=== PATIENT | female | born 1975 | race Caucasian/White ===

== ENCOUNTER 2017-10-27 23:41 | Inpatient (IN) ==
[2017-10-27] MEDS ORDERED: MOM Conc 10 ML UD.LIQ PO PRN (23:50)
[2017-10-27] MEDS ORDERED: Mag Hydrox/Al Hydrox/Simeth 30 ML UDC PO PRN (23:50)
[2017-10-27] MEDS ORDERED: *HR* LORazepam 1 MG TABLET PO PRN (23:50)
[2017-10-27] MEDS ORDERED: *HR* LORazepam 2 MG/ML VIAL IM PRN (23:50)
[2017-10-27] MEDS ORDERED: traZODone 50 MG TABLET PO PRN (23:50)
[2017-10-27] MEDS ORDERED: Haloperidol Lactate 5 MG/ML VIAL IM PRN (23:50)
[2017-10-27] MEDS ORDERED: hydrOXYzine pamoate 25 MG CAPSULE PO PRN (23:50)
[2017-10-28] MEDS: Ibuprofen 400 MG TABLET PO PRN ×2 (00:38→14:00)
[2017-10-28] MEDS: Nicotine 21 MG PATCH.TD24 TD SCH (09:27)
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
[2017-10-28] MEDS ORDERED: Ondansetron ODT 4 MG TAB.RAPDIS SL PRN (15:37)
[2017-10-28] MEDS: Loratadine 10 MG TABLET PO SCH (18:36)
[2017-10-28] MEDS: Nystatin POWDER 30 GM BOTTLE TP SCH ×2 (18:36→21:09)
[2017-10-28] MEDS ORDERED: cloNIDine HCl 0.1 MG TABLET PO ONE (21:00)
[2017-10-28] MEDS: Pregabalin 50 MG CAPSULE PO SCH (21:09)
[2017-10-28] MEDS: clonazePAM 1 MG TABLET PO SCH (21:09)
[2017-10-29 08:34] LABS: Basophils # 0.1 K/mcL (0.0-0.2); Basophils % 0.8 %; Eosinophils # 0.3 K/mcL (0.0-0.6); Hematocrit 44.3 % (35.3-44.9); Hemoglobin 14.4 g/dL (11.5-15.4); Immature Granulocytes % 0.5 % (0-4); Immature Platelets 5.2 % (1.1-6.1); Lymphocytes # 3.1 K/mcL (0.6-4.6); Lymphocytes % 37.2 %; Mean Corpuscular HGB Conc 32.5 g/dL (31.6-35.5); Mean Corpuscular Hemoglobin 27.4 pg (28.0-33.3); Mean Corpuscular Volume 84.2 fL (83.0-100.0); Mean Platelet Volume 11.1 fL (9.4-12.4); Monocytes # 0.6 K/mcL (0.0-1.3); Monocytes % 6.8 %; Neutrophils # 4.3 K/mcL (1.6-8.9); Platelet Count 195 K/mcL (140-400); Red Blood Count 5.26 M/mcL (3.82-4.97); Segmented Neutrophils % 51.7 %
[2017-10-29 08:53] LABS: Thyroid Stimulating Hormone 0.046 mcIU/mL (0.340-5.600)
[2017-10-29 09:07] LABS: Chol/HDL Ratio 3.5 (0-4.9)
[2017-10-29] MEDS: Pregabalin 50 MG CAPSULE PO SCH ×2 (09:10→20:33)
[2017-10-29] MEDS: Potassium Citrate 10 MEQ TABLET.ER PO SCH (09:10)
[2017-10-29] MEDS: ARIPiprazole 10 MG TABLET PO SCH (09:11)
[2017-10-29] MEDS: Loratadine 10 MG TABLET PO SCH (09:11)
[2017-10-29] MEDS: Cholecalciferol (D-3) 1,000 UNIT TABLET PO SCH (09:11)
[2017-10-29] MEDS: clonazePAM 1 MG TABLET PO SCH ×3 (09:11→20:34)
[2017-10-29] MEDS: Nicotine 21 MG PATCH.TD24 TD SCH (09:11)
[2017-10-29] MEDS: Nystatin POWDER 30 GM BOTTLE TP SCH ×3 (09:12→20:40)
[2017-10-29] MEDS: Ibuprofen 400 MG TABLET PO PRN ×2 (12:04→20:39)
--- NOTE | 2017-10-29 14:52 | Psychiatry Progress Note ---
Date of Encounter: 10/29/17 Time of Encounter: 14:45 Subjective Interval history: The patient is a 42-year-old white female. Chief complaint house my thyroid I am feeling a little bit better. I think my medicine is not home. History of present illness over the past 24 hours the patient has had some sedation she has done poorly with her depression now feels that she did not do well off Abilify and Abilify was sent to her pharmacy but she never received it for a week then suicidal ideation increased. Now the patient is feeling better but she still worries but her thyroid she thinks that she may have thyroid problems she recalls that when she was growing up she was normal weight at age 11 she started to blow up. Meaning that she gained a lot of weight. She had her thyroid checked the TSH was still low but that free T4 was within normal range. I told her not to take the Synthroid and to have it rechecked. Other measures such as blood sugar and lipids and white blood cells were within normal limits the CRP was not elevated suggesting that the cause of the leukocytosis not known but it has resolved. The patient would like to talk about discharge follow-up. She is scheduled at [facility] on November 03 and [facility] on November 04. She may address her housing problems she plans to apply for disability Review of Systems Psychiatric: Reports: depression, suicidal ideation, irritability Results - Vital Signs Vital Signs: Temp Pulse Resp BP 97.0 F L 53 20 139/78 10/29/17 09:00 10/29/17 09:00 10/29/17 09:00 10/29/17 09:00 - Labs Labs: Laboratory Results - last 24 hr 10/29/17 10/29/17 10/29/17 07:34 07:34 07:34 WBC 8.4 RBC 5.26 H Hgb 14.4 Hct 44.3 MCV 84.2 MCH 27.4 L MCHC 32.5 RDW 14.0 Plt Count 195 MPV 11.1 Immature Gran % 0.5 Seg Neutrophils % 51.7 Lymphocytes % 37.2 Monocytes % 6.8 Eosinophils % 3.0 Basophils % 0.8 Neutrophils # 4.3 Lymphocytes # 3.1 Monocytes # 0.6 Eosinophils # 0.3 Basophils # 0.1 Immature Plt Fraction 5.2 Glucose 76 C-Reactive Protein < 5 Triglycerides 139 Cholesterol 185 LDL Cholesterol, Calc 104 H VLDL Cholesterol, Calc 28 HDL Cholesterol 53 Cholesterol/HDL Ratio 3.5 TSH 0.046 L Free T4 0.89 Assessment and Plan (1) Bipolar affective, depress, severe Current visit: Yes Status: Acute Plan: Continue hospitalization, Close observation Risks, benefits, side effects, alternatives discussed w/pt: Yes Patient agreeable to treatment: Yes (2) Suicidal ideations Current visit: Yes Status: Acute Plan: Group Therapy, Monitor sleep, Secure weapons Risks, benefits, side effects, alternatives discussed w/pt: Yes Patient agreeable to treatment: Yes (3) Chronic post-traumatic stress disorder Current visit: Yes Status: Acute Plan: Family/Supportive other meeting Risks, benefits, side effects, alternatives discussed w/pt: Yes Patient agreeable to treatment: Yes (4) Obesity (BMI 35.0-39.9 without comorbidity) Current visit: Yes Status: Chronic Plan: Encourage participation in unit milieu, Monitor sleep Risks, benefits, side effects, alternatives discussed w/pt: Yes Patient agreeable to treatment : Yes (5) Thyroid dysfunction Current visit: Yes Status: Acute Plan: Continue hospitalization, Secure weapons Risks, benefits, side effects, alternatives discussed w/pt: Yes Patient agreeable to treatment: Yes (6) Nausea & vomiting Current visit: Yes Status: Chronic Plan: Family/Supportive other meeting Risks, benefits, side effects, alternatives discussed w/pt: Yes Patient agreeable to treatment: Yes Qualifiers: Vomiting type: unspecified Vomiting Intractability: non-intractable Qualified Code(s): R11.2 - Nausea with vomiting, unspecified (7) Cigarette smoker one half pack a day or less Current visit: Yes Status: Chronic Plan: Monitor appetite, Family/Supportive other meeting Risks, benefits, side effects, alternatives discussed w/pt: Yes Patient agreeable to treatment: Yes Consult Discharge Plan - Plan Referrals: Darlin Diop [facility] [Outside] - 11/03/17 11:00 am (The above appointment is with Ron Goel to establish you as a client. When you come to your first appointment, you will be completing paperwork, meeting with an ground crew linesman , and developing a treatment plan. You will receive follow- up appointments for on-going mental health services, which could include community support, individual counseling, and/or groups. You are also scheduled to see Mateusz Heath on 11/11/2017 at 2:00pm for outpatient psychiatric assessment and medication management services. You must keep your intake appointment in order to see the psychiatric prescriber. Please bring your insurance card, social security card and photo ID to you first appointment. If you are unable to keep this appointment, 24 hour business notice of cancellation is expected. The above appointment(s) reflects first availability. You may contact the office regularly to check for cancellations that may allow you to be seen sooner.) Psychiatry Exam - Constitutional Vitals: Temp Pulse Resp BP 97.0 F L 53 20 139/78 10/29/17 09:00 10/29/17 09:00 10/29/17 09:00 10/29/17 09:00 General appearance: age & developmentally appropriate, well-groomed, well- nourished - Musculoskeletal Gait: normal Station: relaxed Strength & Tone: normal for patient - Psychiatric Patient Orientation: Yes Person, Yes Time, Yes Place Level of alertness: Alert Behavior: calm, cooperative Psychomotor activity: Normal Eye Contact: Maintains Eye Contact Mood Description: Depressed Affect description: full range, dysphoric, anxious Speech Volume: Normal Speech pattern: normal rate, normal rhythm, normal tone, fluent, spontaneous Language & Vocabulary: consistent with education Thought Process: Linear, Goal Oriented Thought Content: Yes Suicidal ideation, No Homicidal ideation, No Overt delusions Perceptual Disturbances: No Auditory hallucinations, No Visual hallucinations Attention Span Ability: Capable of Focused Attention Memory Description: Grossly Intact Patient Reliability: Reliable Historian Fund of knowledge: Yes abstraction ability, Yes aware of current events Intelligence Estimate: Average Judgment: Limited Insight: Minimal
[2017-10-30] MEDS: Ibuprofen 400 MG TABLET PO PRN ×2 (01:13→13:39)
[2017-10-30] MEDS: ARIPiprazole 10 MG TABLET PO SCH (09:02)
[2017-10-30] MEDS: Nicotine 21 MG PATCH.TD24 TD SCH (09:02)
[2017-10-30] MEDS: Loratadine 10 MG TABLET PO SCH (09:02)
[2017-10-30] MEDS: Pregabalin 50 MG CAPSULE PO SCH (09:03)
[2017-10-30] MEDS: Potassium Citrate 10 MEQ TABLET.ER PO SCH (09:03)
[2017-10-30] MEDS: Cholecalciferol (D-3) 1,000 UNIT TABLET PO SCH (09:03)
[2017-10-30] MEDS: clonazePAM 1 MG TABLET PO SCH ×2 (09:03→15:23)
[2017-10-30] MEDS: Nystatin POWDER 30 GM BOTTLE TP SCH ×2 (09:05→15:23)
[2017-10-30 09:15] VITALS: BP 140/88
--- NOTE | 2017-10-30 10:17 | Discharge Summary ---
Date of Encounter: 10/30/17 Time of Encounter: 10:17 Diagnosis - Discharge Diagnosis (1) Bipolar affective, depress, severe Status: Acute Medications - Discharge Medications Prescriptions: ARIPiprazole [Abilify] 10 mg PO DAILY #30 tablet Citalopram [CeleXA] 40 mg PO DAILY #60 tablet Ergocalciferol (VITAMIN D2) [Vitamin D2] 50,000 unit PO QWEEK 10/29/17 [History] Fluticasone Propionate Nasal [Flonase] 1 spr NS DAILY 10/29/17 [History] Furosemide [Lasix] 40 mg PO DAILY 10/29/17 [History] Ibuprofen [Motrin] 800 mg PO Q8HR 10/29/17 [History] Indomethacin 75 mg PO BID 10/29/17 [History] Levothyroxine [Synthroid] 300 mcg PO 0630 10/29/17 [History] Loratadine [Claritin] 10 mg PO DAILY 10/29/17 [History] Meloxicam [Mobic] 15 mg PO DAILY 10/29/17 [History] Omeprazole [PriLOSEC] 20 mg PO DAILY 10/29/17 [History] Phentermine HCl [Adipex-P] 37.5 mg PO DAILY 10/29/17 [History] Potassium Chloride [Klor-Con 10] 10 meq PO DAILY 10/29/17 [History] Pregabalin [Lyrica] 200 mg PO TID 10/29/17 [History] Promethazine [Phenergan] 25 mg PO DAILY PRN 10/29/17 [History] Quetiapine Fumarate [Seroquel] 100 mg PO HS 10/29/17 [History] Rizatriptan Benzoate [Maxalt] 10 mg PO Q2H PRN 10/29/17 [History] cloNIDine HCl [Clonidine HCl] 0.2 mg PO DAILY 10/29/17 [History] clonazePAM [Klonopin] 1 mg PO TID 10/29/17 [History] ARIPiprazole [Abilify] 10 mg PO DAILY #30 tablet 10/30/17 [Rx] Citalopram [CeleXA] 40 mg PO DAILY #60 tablet 10/30/17 [Rx] Nystatin POWDER [Nystop] 1 appl TP TID bottle 10/30/17 [Rx] 3 Allergy/AdvReac Type Severity Reaction Status Date / Time ketorolac [From Toradol] Allergy Hives Verified 10/29/17 12:58 morphine Allergy Difficulty Verified 10/29/17 12:58 Breathing Results Procedures and tests throughout hospitalization: Completed Lab Orders Category Date Time Status CBC [Complete Blood Count] [HEME] Routine Lab 10/28/17 06:00 Completed CRP [C-Reactive Protein] Routine Lab 10/28/17 06:00 Completed Glucose Routine Lab 10/29/17 07:34 Completed Lipid Panel Routine Lab 10/29/17 07:34 Completed Thyroid Stimulating Hormone Routine Lab 10/29/17 07:34 Completed Thyroxine (T4) Free Routine Lab 10/29/17 07:34 Completed Provider Date of admission: 10/27/17 23:41 Primary care physician: PCP NONE Discharging clinician: Coni Rocha Psychiatry Exam - Constitutional Vitals: Temp Pulse Resp BP 97.4 F L 67 18 140/88 10/30/17 09:00 10/30/17 09:00 10/30/17 09:00 10/30/17 09:00 General appearance: age & developmentally appropriate, well-groomed, well- nourished - Musculoskeletal Gait: normal Station: relaxed Strength & Tone: normal for patient - Psychiatric Patient Orientation: Yes Person, Yes Time, Yes Place Level of alertness: Alert Behavior: calm, cooperative Psychomotor activity: Normal Eye Contact: Maintains Eye Contact Mood Description: Euthymic/stable Affect description: congruent with mood, full range Speech Volume: Normal Speech pattern: normal rate, normal rhythm, normal tone, fluent, spontaneous Language & Vocabulary: consistent with education Thought Process: Linear, Goal Oriented Thought Content: No Suicidal ideation, No Homicidal ideation, No Overt delusions Perceptual Disturbances: No Auditory hallucinations, No Visual hallucinations Attention Span Ability: Capable of Focused Attention Memory Description: Grossly Intact Patient Reliability: Reliable Historian Fund of knowledge: Yes abstraction ability, Yes aware of current events Intelligence Estimate: Average Judgment: Fair Insight: Partial Hospital Course Hospital course: Ms. Wilson is a 42 year old female who was admitted secondary to SI. Client reports she went to a homeless alf in [place] where she does not know anyone. [place] overwhelmed when told she had to be out of the alf eight hours a day and requested to go to the hospital instead. Now denying SI. Has a cousin she can stay with so client is feeling better. No issues on the unit. She has been bright, reactive, and future oriented. Already linked with services. Continued home medication regimen here in the hospital. Carries the diagnosis of Bipolar Disorder but does not appear outwardly depressed or manic. At this time client is denying SI/HI/AH/VH and looks safe for discharge. - Time Spent with Patient Total time spent providing and/or coordinating discharge services: Assessment and Plan - Patient/Caregiver Discharge Instructions Activity: resume usual activities as tolerated Diet: regular diet - Follow up Plan Follow up with: Darlin Diop [facility] [Outside] - 11/03/17 11:00 am (The above appointment is with Ron Goel to establish you as a client. When you come to your first appointment, you will be completing paperwork, meeting with an model maker apprentice , and developing a treatment plan. You will receive follow- up appointments for on-going mental health services, which could include community support, individual counseling, and/or groups. You are also scheduled to see Mateusz Heath on 11/11/2017 at 2:00pm for outpatient psychiatric assessment and medication management services. You must keep your intake appointment in order to see the psychiatric prescriber. Please bring your insurance card, social security card and photo ID to you first appointment. If you are unable to keep this appointment, 24 hour business notice of cancellation is expected. The above appointment(s) reflects first availability. You may contact the office regularly to check for cancellations that may allow you to be seen sooner.) Functional capacity at discharge: independent ambulation Overall status at discharge: Stable Disposition: Home, Self-Care Quality - Multiple Antipsychotics Patient discharged on 2 or more antipsychotic medications: No Procedures - Procedures Procedures: Medication Management, Crisis Stabilization, Supportive Therapy, Group Therapy
== END 2017-10-30 16:40 | disposition home or self-care (01) | DRG 753 ==
LOC: 1ANU 23:41
PROVIDERS: ADMIT Psychiatry & Neurology Forensic Psychiatry; ATTEND Psychiatry & Neurology Forensic Psychiatry